=== PATIENT | female | born 1995 | race Caucasian/White ===

== ENCOUNTER 2025-02-16 09:12 | Emergency (ER) | payer OTHER, SELFPAY ==
--- NOTE | ~2025-02-16 | US_ITS ---
EXAMINATION: US OBSTETRICAL ULTRASOUND CLINICAL INFORMATION: Vaginal bleeding. Concerning miscarriage. COMPARISON: None available. LMP: 01/05/2025.. Gestational age by maternal dates is 6 weeks and 0 days. Estimated date of delivery by maternal dates is 10/12/2025. TECHNIQUE: Real-time transabdominal and transvaginal obstetric pelvic ultrasound performed using grayscale and color Doppler technique. FINDINGS: There is a single irregularly-shaped intrauterine vein anechoic structure which measures 2.5 cm in maximum dimension. There is a yolk sac. There is no pole. There is a crescent-shaped, approximately 1.5 cm subchorionic hypoechoic abnormality.. MATERNAL ADNEXA: The right maternal ovary measures 2.3 cm. There is a 3 cm mixed isoechoic and slightly hyperechoic abnormality without flow on color Doppler interrogation. The left maternal ovary measures 2 x 2 x 2 cm. Volume: 4 cc. No gross free fluid/ascites. US/US OB pelvic and transvaginal IMPRESSION: Single intrauterine irregular shaped gestational sac without a pole corresponding to 6 weeks and 6 days by ultrasound. Probable 1.5 cm subchorionic hemorrhage. Recommend follow-up ultrasound in a short period time and serial quantification beta-hCG. No gross ovarian torsion. Probable corpus luteum, right ovary. Electronically signed by: Zeke Oliva MD 02/16/2025 11:58 AM EDT
[2025-02-16 09:22] VITALS: BP 112/55; PULSE 82; RESP 18; TEMP 36.9; O2SAT 99; BMI 28.9
[2025-02-16 10:16] LABS: MANUAL DIFF FLAG NO
[2025-02-16 10:17] LABS: Basophils Percent Auto 0.3 % (0-2); Eosinophils Absolute Auto 0.1 X10*3/uL (0.0-0.4); Eosinophils Percent Auto 1.2 % (0-4); Hematocrit 37.3 % (37.0-47.0); Hemoglobin 12.6 g/dl (12.0-16.0); Imm Gran Abs Auto 0.02 X10*3/uL (0.00-0.03); Imm Gran Pct Auto 0.3 % (0.0-0.4); Lymphocytes Absolute Auto 1.5 X10*3/uL (1.2-4.9); Lymphocytes Percent Auto 25.9 % (20-40); Mean Corpuscular HGB Conc 33.8 g/dl (31.0-35.0); Mean Corpuscular Hemoglobin 30.9 pg (27.0-33.0); Mean Corpuscular Volume 91.4 fL (80.0-98.0); Mean Platelet Volume 9.5 fL (9.4-12.3); Monocytes Absolute Auto 0.5 X10*3/uL (0.1-1.2); Monocytes Percent Auto 8.4 % (2-11); Neutrophils Absolute Auto 3.7 x10*3/uL (2.0-8.3); Neutrophils Percent Auto 63.9 % (45-73); Platelet Count 176 X10*3/uL (160-400); Red Blood Count 4.08 X10*6/uL (4.20-5.50); Red Cell Distribution Width 11.4 % (11.0-16.0); White Blood Count 5.7 X10*3/uL (4.8-10.8)
[2025-02-16 10:18] VITALS: PULSE 89; RESP 18; O2SAT 97
--- NOTE | 2025-02-16 10:18 | ED_ITS ---
HPI - General Chief complaint: OB Stated complaint: [place] Time Seen by Provider: 02/16/25 10:03 Source: patient Mode of arrival: ambulatory Limitations: no limitations History of Present Illness HPI Narrative: This is a 29 years old female AB1 about 6 weeks gestation presented to the emergency department complaining of vaginal bleeding earlier today. Denies any systemic symptoms such as fever vomiting. She is Rh positive MD Complaint: vaginal bleeding Onset (ago): hour(s) (3) Pain Consistency: constant Severity: mild Quality: Cramping Relieving factors: none Exacerbating factors: none Related Data Allergies Allergy/AdvReac Type Severity Reaction Status Date / Time No Known Allergies Allergy Verified 02/16/25 09:24 Review of Systems 2 Constitutional: Constitutional: Reports no additional constitutional complaints Cardiovascular: Cardiovascular: Reports no additional cardiovascular complaints Genitourinary: Genitourinary: Reports no additional female genitourinary complaints PMFSH Past Medical History Attestation statement: The following information was validated with the patient. Physical Exam 2 Vital Signs: Vital Signs: Last Vital Signs Temp 98.5 F 02/16/25 13:34 Pulse 80 02/16/25 13:34 Resp 18 02/16/25 13:34 BP 115/77 02/16/25 13:34 Pulse Ox 97 02/16/25 13:34 O2 Del Method Room Air 02/16/25 13:34 BMI result Body Mass Index 28.9 She looks well she is not toxic-appearing Const: General: cooperative Nutritional Appearance: well nourished O rientation/consciousness: patient oriented x3 Limitations: no limitations HEENT: Head: Yes normal to inspection General nose exam: Normal external nose present Face and sinus: Yes normal facial exam Mouth: Normal oral and palatal mucosa present Throat: Yes posterior oropharynx normal Neck: Neck: Yes normal visual inspection Chest: Chest palpation & inspection: normal inspection of the chest Resp: Effort & Inspection: normal respiratory effort Auscultation: clear to auscultation bilaterally Cardio: Jugular venous distension: no JVD Rhythm: regular rhythm GI: Inspection: Yes normal to inspection Palpation (GI): Soft to palpation, not firm and nontender Skin: General skin exam: no rashes or lesions noted Lesions: no lesions Rashes: no rashes Neuro: General: patient oriented x3 Cranial nerves: Yes CN's II-XII intact bilaterally Extrem: General: Yes normal to inspection Right upper extremity: normal to inspection Course Reevaluation(s) Reevaluation #1: The case was reviewed with OBGYN doctor there be, is recommendation was discharged with close follow-up including quant HCG follow-up ultrasound. I spoke at length with the patient she is very comfortable with the plan of care she has a her own OBGYN Time: 12:53 Medical Decision Making Medical Decision Making MDM Narrative: Patient is here with vaginal bleeding she is 6 weeks differential diagnosis miscarriage threatened ab ectopic. We will obtain labs and ultrasound Differential Diagnosis Differential Diagnoses: The differential diagnosis associated with the presentation includes Miscarriage/ectopic/threatened ab Admission/Observation Consideration of admission/observation: Escalation of care including admission/observation considered Lab Data 02/16/25 10:11 02/16/25 10:11 Labs: Lab Results 02/16/25 02/16/25 Range/Units 10:11 12:55 WBC 5.7 (4.8-10.8) X10*3/uL RBC 4.08 L (4.20-5.50) X10*6/uL Hgb 12.6 (12.0-16.0) g/dl Hct 37.3 (37.0-47.0) % MCV 91.4 (80.0-98.0) fL MCH 30.9 (27.0-33.0) pg MCHC 33.8 (31.0-35.0) g/dl RDW 11.4 (11.0-16.0) % Plt Count 176 (160-400) X10*3/uL MPV 9.5 (9.4-12.3) fL Immature Gran % (Auto) 0.3 (0.0-0.4) % Neut % (Auto) 63.9 (45-73) % Lymph % (Auto) 25.9 (20-40) % Stephenson % (Auto) 8.4 (2-11) % Eos % (Auto) 1.2 (0-4) % Baso % (Auto) 0.3 (0-2) % Lymph # (Auto) 1.5 (1.2-4.9) X10*3/uL Stephenson # (Auto) 0.5 (0.1-1.2) X10*3/uL Eos # (Auto) 0.1 (0.0-0.4) X10*3/uL Baso # (Auto) 0.0 (0.0-0.2) X10*3/uL Abs Immat Gran (auto) 0.02 (0.00-0.03) X10*3/uL Absolute Neuts (auto) 3.7 (2.0-8.3) x10*3/uL Absolute Nucleated RBC 0.000 (0.0-0.012) X10*3/uL Nucleated RBC % (auto) 0.0 (0.0-0.2) /100WBC Sodium 139 (135-145) mmol/L Potassium 4.1 (3.3-5.1) mmol/L Chloride 108 (96-108) mmol/L Carbon Dioxide 27 (22-29) mmol/L Anion Gap 8 L (12-20) BUN 7 L (9-16) mg/dL Creatinine 0.63 (0.5-1.4) mg/dL Estim Creat Clear Calc 118.5 Estimated GFR > 60 Random Glucose 85 (60-115) mg/dL Calcium 9.2 (8.4-10.2) mg/dL Beta HCG, Quant 28884 mIU/mL Chlam trachomat DNA PCR NOT DETECTED (Not Detect.) N.gonorrhoeae DNA (PCR) NOT DETECTED (Not Detect.) Discharge Plan Discharge Clinical Impression: Threatened Patient Disposition: Home, Self-Care Instructions: Threatened Miscarriage (ED) Additional Instructions: Follow-up with your OBGYN you will need repeat quant HCG in about 48 hours, he also will need a repeat pelvic ultrasound. Return to the emergency room if the bleeding worse any concern Referrals: Physician,Guanako J [Primary Care Provider] - 2 days Stand Alone Forms: Work/School Release Interventions: ED Discharge Assessment Last Done: 02/16/25 13:34 Discharge Date/Time: 02/16/25 13:35 Print Language: Maldivian
[2025-02-16 10:37] LABS: Anion Gap 8 (12-20); Blood Urea Nitrogen 7 mg/dL (9-16); Calcium 9.2 mg/dL (8.4-10.2); Carbon Dioxide 27 mmol/L (22-29); Chloride 108 mmol/L (96-108); Creatinine Clr Calc Pharmacy 118.5; Estimated Glomerular Filt Rate > 60; Glucose Random 85 mg/dL (60-115); Potassium 4.1 mmol/L (3.3-5.1); Sodium 139 mmol/L (135-145)
[2025-02-16 11:05] LABS: HCG Quantitative 30581 mIU/mL
--- OUTSIDE RECORDS SUMMARY | 2025-02-16 11:13 | XMS_ITS | Referral Summary ---
Author Organization [facility] Address [address] [place] [id number] Care Team Providers Care Sign Out Clerk Name Role Phone Patient, Has No Pcp Or Ref Primary Care Provider Unavailable Allergies No known active allergies Medications EPINEPHrine (EPIPEN) 0.3 mg/0.3 mL injection syringe Inject 1 Syringe (0.3 mg total) into the outer thigh muscle as directed as needed for anaphylaxis for up to 2 doses. 2 each Active Active Problems No known active problems Social History Tobacco Use Types Packs/Day Years Used Date Smoking Tobacco: Never Assessed Comments Unknown Sex and Gender Information Value Date Recorded Sex Assigned at Not on file Legal Sex Female 7:28 AM EDT Gender Identity Not on file Sexual Orientation Not on file Last Filed Vital Signs Vital Sign Reading Time Taken Comments Blood Pressure 119/68 06/18/2021 6:00 PM EDT Pulse 78 06/18/2021 6:00 PM EDT Temperature 36.6 ??C (97.8 ??F) 06/18/2021 2:24 PM E DT Respiratory Rate 20 06/18/2021 6:00 PM EDT Oxygen Saturation 97% 06/18/2021 6:00 PM EDT Inhaled Oxygen Concentration - - Weight 59 kg (130 lb) 06/18/2021 8:02 AM EDT Height - - Body Mass Index - - Plan of Treatment Not on file Insurance on file Care Teams Sign Out Clerk Relationship Specialty Start Date End Date Patient, Has No Pcp Or Ref DO NOT EDIT THIS RECORD VIA PROVIDER ON THE FLY 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
--- NOTE | 2025-02-16 12:32 | P.CONOB_ITS ---
TEAM PRIMARY CARE PHYSICIAN - CN: HPI Data of Consult Consult date: 02/16/25 Primary Care Provider: Unknown Physician Consult Narrative Narrative: I was consulted on Shauna Barrera who is a 29 year old female This is a 29 years old female AB1 at around 6 weeks gestation by LMP presented to the emergency department complaining of vaginal bleeding earlier today that resolved at the time of presentation. No other associated symptoms. Rh positive HCG 30,581 cc:: CC: OB [facility] Social History Social History Smoked in Last 30 Days: No Use of substances other than those prescribed or required for medical reasons: No Advance Directives: No Advance Directives Information Provided: No Do you have a plan to hurt others: No Plan Patient : Yes Meds Allergies Allergy/AdvReac Type Severity Reaction Status Date / Time No Known Allergies Allergy Verified 02/16/25 09:24 TEAM PRIMARY CARE PHYSICIAN Physical Exam Vitals Vital signs: Temp Pulse Resp BP Pulse Ox O2 Del Method 98.5 F 89 18 112/55 L 97 Room Air 02/16/25 09:22 02/16/25 10:18 02/16/25 10:18 02/16/25 09:22 02/16/25 10:18 02/16/25 10:18 BMI result Body Mass Index 28.9 Additional Comments: Abdominal exam reported by Dr. Dunbar as the following: normal to inspection , Soft to palpation, not firm and nontender TEAM PRIMARY CARE PHYSICIAN - Results Labs 02/16/25 10:11 02/16/25 10:11 Labs: Short CBC 02/16/25 Range/Units 10:11 WBC 5.7 (4.8-10.8) X10*3/uL Hgb 12.6 (12.0-16.0) g/dl Hct 37.3 (37.0-47.0) % Plt Count 176 (160-400) X10*3/uL BMP 02/16/25 10:11 Sodium 139 Potassium 4.1 Chloride 108 Carbon Dioxide 27 BUN 7 L Creatinine 0.63 Calcium 9.2 Imaging US - abdomen: Radiologist's impression: ITS Impressions Pelvic/Transvag US 02/16/25 11:15 IMPRESSION: Single intrauterine irregular shaped gestational sac without a pole corresponding to 6 weeks and 6 days by ultrasound. Probable 1.5 cm subchorionic hemorrhage. Recommend follow-up ultrasound in a short period time and serial quantification beta-hCG. No gross ovarian torsion. Probable corpus luteum, right ovary. Electronically signed by: Zeke Oliva MD 02/16/2025 11:58 AM EDT Assessment and Plan (1) Early stage of : Status: Acute Recommended to Dr. Dunbar the following: GC/CT to be collected Since the patient is not having any vaginal bleeding and ultrasound mean sac diameter is 1.88 cm which is below the 2.5 cm ultrasonographic criteria for SAB diagnose, recommend for the patient to schedule a short term follow-up appointment with her OBGYN for repeat hCG quantitative and ultrasound. SAB warnings to be given to the patient. Instructions to be given to patient to come back to the emergency room in case of pelvic pain and /or vaginal bleeding or in case she was not able to have access to care with the her established OBGYN. vitamin 1 tablet p.o. q.d. I spent a total of 20 minutes reviewing the chart, communicating to the emergency room provider and documenting in the medical record.
[2025-02-16 13:34] VITALS: BP 115/77; PULSE 80; RESP 18; TEMP 36.9; O2SAT 97
[2025-02-16 15:00] LABS: CT PCR NOT DETECTED (Not Detect.); NG PCR NOT DETECTED (Not Detect.)
== END 2025-02-16 13:35 | disposition home or self-care (01) ==
PROVIDERS: Emergency Medicine; Emergency Provider Emergency Medicine
DX: O20.0 Threatened abortion (principal); O20.9 Hemorrhage in early pregnancy, unspecified; Z3A.01 Less than 8 weeks gestation of pregnancy
CPT/HCPCS: 36415; 76801; 76817; 80048; 84702; 85025; 87491; 87591; 99284

== ENCOUNTER → 2025-02-16 09:50 | Outpatient (BNV) | payer OTHER, SELFPAY | PROVIDERS: Emergency Provider Emergency Medicine; Visit Provider Obstetrics & Gynecology | DX: O26.851 Spotting complicating pregnancy, first trimester (principal); Z3A.01 Less than 8 weeks gestation of pregnancy | CPT/HCPCS: 99447 ==

== ENCOUNTER → 2025-02-16 10:17 | Outpatient (BNV) | payer OTHER, SELFPAY | PROVIDERS: Emergency Provider Emergency Medicine; Visit Provider Radiology Diagnostic Radiology | DX: N93.9 Abnormal uterine and vaginal bleeding, unspecified (principal) | CPT/HCPCS: 76801; 76817 ==